=== PATIENT | female | born 2000 | race Caucasian/White ===

== ENCOUNTER 2023-04-18 14:50 | Emergency (ER) | payer BC ==
[~2023-04-18] VITALS: Ht 170.2 cm; Wt 65.8 kg
[2023-04-18 15:25] VITALS: O2SAT 100
[2023-04-18] MEDS ORDERED: HYDROCODONE/APAP 5MG-325MG TAB PO ONE (16:00)
== END 2023-04-18 16:36 | disposition home or self-care (01) ==
LOC: ER 15:02
DX: T23.211A Burn of second degree of right thumb (nail), initial encounter (principal); T31.0 Burns involving less than 10% of body surface; X10.1XXA Contact with hot food, initial encounter; Y92.89 Other specified places as the place of occurrence of the external cause
CPT/HCPCS: 99283